=== PATIENT | female | born 1990 | race Caucasian/White ===

== ENCOUNTER 2017-09-21 21:31 | Inpatient (IN) ==
[2017-09-21] MEDS ORDERED: Naloxone 0.4 MG/ML INJ IVP PRN (21:34)
[2017-09-21] MEDS ORDERED: Metoclopramide 10 MG/2 ML VIAL IVP PRN (21:34)
[2017-09-21] MEDS ORDERED: Famotidine 20 MG/2 ML VIAL IVP PRN (21:34)
[2017-09-21] MEDS ORDERED: Ondansetron 4 MG/2 ML VIAL IVP PRN (21:34)
[2017-09-21] MEDS ORDERED: Ringers Solution, Lactated 1,000 ML IVC SCH (21:45)
[2017-09-21] MEDS ORDERED: miSOPROStol 25 MCG TABLET PO ONE (21:50)
--- NOTE | 2017-09-21 22:07 | OB/GYN History & Physical ---
Date of Encounter: 09/21/17 Time of Encounter: 21:58 Assessment and Plan (1) Intrauterine Current visit: Yes Status: Acute Admit to L&D for observation of labor Expectant management Labs-CBC and clot to hold Continuous monitoring Pain management plan is natural childbirth Anticipate Dr. 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 Abraham is a 26 year old female at 38 weeks 4 days gestation with an estimated date of of 10/01/17 dated by early ultrasound. She presents today with complaints of contractions this morning followed by a gush of fluid noted at 1930 this evening. She reports she has not felt contractions since earlier this morning. She endorses good movement and denies vaginal bleeding. Her has been complicated by diet-controlled gestational diabetes. She has been seen by the midwives during this . records are available electronically and have been reviewed. Labs: A+ GBS- Hep B- GC/CL- HIV- T. Palladium- Varicella immune Rubella immune Past Med Surg Social Fam HX - Past Medical History Medical history: no medical history - Past Surgical History Additional surgical history: wisdom teeth - Social History Smoking Status: Never smoker Smokeless Tobacco Status: Yes (chews 1/2 can a day) Alcohol use: none Drug use: none - Family History Mother Living Status: Still Living Obstetrical History - Pregnancies : 1 Para: 0 Term: 0 : 0 Ab's: 0 Livin Medications and Allergies 3 Allergy/AdvReac Type Severity Reaction Status Date / Time No Known Allergies Allergy Verified 09/21/17 21:34 Review of System OB All systems PM: reviewed and no additional remarkable complaints except as stated Exam - Constitutional Constitutional: well developed, well nourished, no acute distress, average body habitus - HEENT HEENT: PERRL, Normocephaly, Mucus Membranes Moist - Neck Neck exam: full ROM, normal inspection, supple, trachea midline - Lungs Respiratory exam: CTAB - Cardiovascular Cardiovascular exam: RRR, +S1, +S2 - Breasts Breast: bilateral: normal - Abdomen Abdomen: Present: bowel sounds normal, gravid, non tender - Extremities Extremities exam: normal capillary refill, normal inspection, pedal edema, radial pulses palpable and symmetrical Deep Tendon Reflex Grade: 2+ Normal - Vulva Vulva: bilateral: normal - Vagina Vagina: Present: normal moisture - Cervix Dilation: 2 Effacement: 50 Station: -3 - Uterus Uterus exam: Present: normal size, normal contour - Adnexa Adnexa: bilateral: normal - Anus/Rectum Anus/Rectum: Present: normal perianal skin Results All other labs normal. - VTE Reasons for not Prescribing Prophylaxis: Treatment not Indicated - Low risk for VTE
[2017-09-21 22:31] LABS: Amphetamine Screen,Urine Negative ng/mL (Cutoff=1000); Barbiturate Screen,Urine Negative ng/mL (Cutoff=200); Benzodiazepines Screen,Urine Negative ng/mL (Cutoff=200); Cannabinoid Screen,Urine Negative ng/mL (Cutoff = 50); Cocaine Screen,Urine Negative ng/mL (Cutoff= 300); Opiate Screen,Urine Negative ng/mL (Cutoff=300); Phencyclidine Screen,Urine Negative ng/mL (Cutoff=25)
[2017-09-21 22:44] LABS: Basophils % 0.2 %; Eosinophils # 0.1 K/mcL (0.0-0.6); Eosinophils % 0.5 %; Hematocrit 37.2 % (35.3-44.9); Hemoglobin 12.4 g/dL (11.5-15.4); Immature Granulocytes % 0.6 % (0-4); Lymphocytes % 21.8 %; Mean Corpuscular HGB Conc 33.3 g/dL (31.6-35.5); Mean Corpuscular Volume 87.1 fL (83.0-100.0); Mean Platelet Volume 12.7 fL (9.4-12.4); Monocytes # 1.1 K/mcL (0.0-1.3); Monocytes % 7.6 %; Neutrophils # 9.7 K/mcL (1.6-8.9); Platelet Count 165 K/mcL (140-400); Red Blood Count 4.27 M/mcL (3.82-4.97); Red Cell Distribution Width 13.6 % (11.5-14.5); Segmented Neutrophils % 69.3 %
[2017-09-22] MEDS ORDERED: Oxytocin 20 units/ LR 1000 mL 20 UNIT/1,000 ML BAG IVC SCH (03:15)
[2017-09-22] MEDS ORDERED: Oxytocin 20 units/ LR 1000 mL 20 UNIT/1,000 ML BAG IVC ONE (03:29)
--- NOTE | 2017-09-22 05:34 | OB Labor Progress Note ---
Date of Encounter: 09/22/17 Time of Encounter: 05:31 Labor Progress Note - Subjective Subjective: Patient reports slightly more discomfort with contractions. Rates them 4 out of 10. - Cervix Cervix: 2/80/-3 - Heart Tones Heart Tones: Baseline 140 Moderate variability Accelerations present 15 x 15 Few late decelerations-resolved with position changes FHR category II - [place]: Contractions every 2-4 minutes and palpate moderate - Plan Plan: Continue expectant management Frequent position changes May have Nubain or epidural upon request Anticipate vaginal delivery
--- NOTE | 2017-09-22 05:51 | OB Labor Progress Note ---
Date of Encounter: 09/22/17 Time of Encounter: 05:49 Labor Progress Note - Subjective Subjective: Comfort level remains the same - Cervix Cervix: 4/80/-2 to -3 - Heart Tones Heart Tones: Baseline 140 Moderate variability Accelerations present 15x15 Variable and early appearing decelerations along with late decelerations FHR Category II - [place]: Contractions every 2-4 minutes and palpate moderate - Interventions Interventions: SVE IUPC placed FSE placed position changes - Plan Plan: Continue expectant management Adjust Pitocin accordingly to adequate labor pattern Frequent position changes May have Nubain or epidural upon request Anticipate
[2017-09-22] MEDS ORDERED: *HR* Oxytocin 10 UNIT/ML VIAL IM ONE (07:18)
[2017-09-22] MEDS: *HR* Nalbuphine 10 MG/ML AMPUL IVP PRN ×2 (09:56→16:17)
[2017-09-22] MEDS ORDERED: Ringers Solution, Lactated 500 ML ONE ×3 (12:22→17:08)
[2017-09-22] MEDS ORDERED: Ringers Solution, Lactated 1,000 ML ONE (17:43)
[2017-09-22] MEDS ORDERED: 0.9 % Sodium Chloride 1,000 ML ONE (18:01)
[2017-09-22] MEDS ORDERED: Epidural Premix (fent/bupiv) 110 ML EP SCH (19:00)
[2017-09-22] MEDS ORDERED: Lidocaine 1% 20 ML MDV ONE (19:00)
[2017-09-22] MEDS ORDERED: Epidural Premix (fent/bupiv) 110 ML EP ONE (19:02)
--- NOTE | 2017-09-22 20:34 | Anesthesia Evaluation PreOp ---
Date of Encounter: 09/22/17 Time of Encounter: 19:00 - Past History Planned Operation: MELLISA Cardiac History: Denies any Significant Hx Pulmonary History: Denies Any Significant HX, Other (SMOKELESS TOBACCO) [employer] History: Denies Any Significant HX Other Medical History: Denies Any Significant HX Anesthesia History: No Prior Anesthetic Complications : Yes Test: Positive Alcohol Use: none Drug use: none Medications and Allergies Gummies 1 PO DAILY 09/21/17 [History] 3 Allergy/AdvReac Type Severity Reaction Status Date / Time No Known Allergies Allergy Verified 09/21/17 21:34 - Meds/Allergy Pre-op Review Medications Reviewed: Yes Allergies Reviewed: Yes Beta Blockers on Current Med List: No Anesthesia Results - Labs 09/21/17 21:42 Anesthesia Exam Height: 68 Weight: 95 NPO (# of Hours): mn Pain Scale: 0 - HEENT Pupil (Motor): Pupils equal Mallampati: II - [employer] Motor: Normal RUE, Normal LUE, Normal RLE, Normal LLE, Normal Face [employer] Sensory: Normal: RUE, LUE, RLE, LLE, Face - Cardiac Rhythm: Regular Murmur: None JVD: No Carotid Bruit: No - Pulmonary Breath Sounds: bilateral Clear Respiratory Effort: Symmetrical Anesthesia Assess/Plan ASA Score: 2 Modified Jose Scale for Level of Consciousness: Cooperative, oriented, and tranquil Anesthetic Plan: Regional Autologous Blood: No Monitoring Plan: Standard Monitors
--- NOTE | 2017-09-22 20:37 | Anesthesia Procedures ---
Date of Encounter: 09/22/17 Time of Encounter: 19:00 Procedures: Anesthesia - Epidural/Spinal Patient ID/Chart reviewed: Yes OB Eval: Gestational age: 38.4 OB Eval: : 1 OB Eval: Hx Para: 0 OB Eval: Contractions: Non-stressed pattern Consent Obtained: Yes Supplemental Oxygen: None/Room Air Site Prep: Aseptic Technique, Sterile prep and drape, Povidone-Iodine 1% Patient position: upright Amount of Local Anesthetic used: 3 Touhy Needle Gauge: 18 Touhy Needle Depth (cm): 9 Catheter Depth at Skin (cm): 12 Test Dose (1.5% Lido + Epi): Volume given (mls): 3 Test Dose Result: Negative Loading Dose Administered: Thru Catheter Infusion Rate (mls/hr): [address]: Tegaderm, Tape Interspace Used: L4-L5 Loss of Resistance (DERIAN): Yes Blood: No CSF: No Paresthesia: No
--- NOTE | 2017-09-22 21:34 | OB Labor Progress Note ---
Date of Encounter: 09/22/17 Time of Encounter: 21:32 Labor Progress Note - Subjective Subjective: Feeling some pressure - Vital Signs Vital Signs: VSS - Cervix Cervix: 7-8/100/0 - Heart Tones Heart Tones: FHR 145 Category 2 Moderate variability Variable decelerations Accelerations - [place]: IUPC - Plan Plan: Continue routine labor management Consider restarting IV Pitocin Encourage frequent position changes Anticipate vaginal delivery POC per consult with Dr Amador
--- NOTE | 2017-09-23 01:32 | OB/GYN Procedure Note ---
Delivery - Delivery Date: 09/23/17 Provider: Hazel Romero Intrapartum events: none Delivery induction: none Delivery augmentation: pitocin Delivery monitor: external FHT, external uterine, internal FHT, internal uterine Anesthesia: epidural Quantitated Blood Loss: 350 - (s) A Delivery Date: 09/23/17 Delivery Time: 00:58 Presentation: vertex Position: THAO Route of delivery: Gender: Male Viability: Viable Pounds: 7 Ounces: 10 Weight Gram: 3460 kg at 1 minute: 8 at 5 mins: 9 Shoulder Dystocia: not encountered Specimens collected: cord blood Placenta: spontaneous Cord: nuchal cord, 3 umbilical vessels, delivered through nuchal - Repair Episiotomy: none Laceration Description: Perineal - 1st Degree - Complications Delivery complications: none Delivery comments: Progressed to complete and pushing to delivery of viable male infant in the THAO position. scores 8 at one minute and 9 at five minutes respectively. Nuchal cord x 2, delivered through. No shoulder encountered, no meconium encountered. Infant placed on maternal abdomen, warmed, dried and stimulated. Cord double clamped and cut with assistance from father of baby after delayed cord clamping greater than 2 minutes. 3 vessel cord. Placenta delivered intact with trailing membranes; membranes removed with gentle pressure and twisting motion.Upon perineal inspection, a first degree perineal laceration was found and repaired with 3-0 Monocryl. EBL 350 ml. Fundus firm and 1 below the umbilicus with minimal bleeding. Mother and stable in recovery for two hours. LORENE Garner and Hazel Romero CNM attended . Dr Amador notified of . - Disposition Mom disposition: stable in LDR Branch disposition: stable in LDR
[2017-09-23] MEDS ORDERED: Benzocaine/Menthol 56 GM AEROSOL SPRAY TP PRN (03:50)
[2017-09-23] MEDS ORDERED: Oxytocin 20 units/ LR 1000 mL 20 UNIT/1,000 ML BAG IVC ONE (03:50)
[2017-09-23] MEDS ORDERED: Measles/Mumps/Rubella Vacc 0.5 ML VIAL SQ PRN (03:50)
[2017-09-23] MEDS ORDERED: Acetaminophen 325 MG TABLET PO PRN (03:50)
[2017-09-23] MEDS ORDERED: Oxytocin 20 units/ LR 1000 mL 20 UNIT/1,000 ML BAG IVC SCH (03:50)
[2017-09-23] MEDS ORDERED: Sennosides 8.6 MG TABLET PO PRN (03:50)
[2017-09-23] MEDS: Prenatal Vit/FA 1 EACH TABLET PO SCH (10:27)
[2017-09-23] MEDS: Ibuprofen 600 MG TABLET PO PRN ×2 (10:28→21:46)
[2017-09-24 08:07] VITALS: BP 114/76
[2017-09-24] MEDS: Prenatal Vit/FA 1 EACH TABLET PO SCH (08:19)
--- NOTE | 2017-09-24 10:19 | Discharge Summary ---
Date of Encounter: 09/24/17 Time of Encounter: 10:16 - Discharge Diagnosis (1) Vaginal delivery Priority: Primary Status: Acute Comments: Meeting all PP milestone, bleeding minimal, , tolerates regular diet, desires discharge. - Discharge Medications Prescriptions: Ibuprofen [Motrin] 600 mg PO Q6HR PRN #60 tablet PRN Reason: Cramping Dibucaine [Nupercainal] 1 appl TP BID PRN #1 tube PRN Reason: Hemorrhoids Docusate [Colace] 100 mg PO BID #60 capsule Home Medications: Gummies 1 PO DAILY 09/21/17 [History] Acetaminophen [Tylenol] 650 mg PO Q6HR PRN tablet 09/24/17 [Rx] Benzocaine/Menthol [place] [Dermoplast [place]] 1 appl TP QID PRN aerosol 09/24/17 [Rx] Dibucaine [Nupercainal] 1 appl TP BID PRN #1 tube 09/24/17 [Rx] Docusate [Colace] 100 mg PO BID #60 capsule 09/24/17 [Rx] Ibuprofen [Motrin] 600 mg PO Q6HR PRN #60 tablet 09/24/17 [Rx] Vit/FA 1 each PO DAILY tablet 09/24/17 [Rx] Allergies/Adverse Reactions: 3 Allergy/AdvReac Type Severity Reaction Status Date / Time No Known Allergies Allergy Verified 09/21/17 21:34 Data Procedures and tests throughout hospitalization: Laboratory Tests 09/21/17 09/21/17 09/22/17 21:42 22:00 10:27 WBC 13.9 H RBC 4.27 Hgb 12.4 Hct 37.2 MCV 87.1 MCH 29.0 MCHC 33.3 RDW 13.6 Plt Count 165 MPV 12.7 H Immature Gran % 0.6 Seg Neutrophils % 69.3 Lymphocytes % 21.8 Monocytes % 7.6 Eosinophils % 0.5 Basophils % 0.2 Neutrophils # 9.7 H Lymphocytes # 3.0 Monocytes # 1.1 Eosinophils # 0.1 Basophils # 0.0 POC Glucose 79 Urine Opiates Screen Negative Ur Barbiturates Screen Negative Ur Phencyclidine Scrn Negative Ur Amphetamines Screen Negative U Benzodiazepines Scrn Negative Urine Cocaine Screen Negative U Marijuana (THC) Screen Negative 09/22/17 09/22/17 09/23/17 15:10 18:48 00:00 WBC RBC Hgb Hct MCV MCH MCHC RDW Plt Count MPV Immature Gran % Seg Neutrophils % Lymphocytes % Monocytes % Eosinophils % Basophils % Neutrophils # Lymphocytes # Monocytes # Eosinophils # Basophils # POC Glucose 77 80 86 Urine Opiates Screen Ur Barbiturates Screen Ur Phencyclidine Scrn Ur Amphetamines Screen U Benzodiazepines Scrn Urine Cocaine Screen U Marijuana (THC) Screen Date of admission: 09/21/17 22:38 Primary care physician: PCP NONE Consults: 09/23/17 03:50 Consult to Route Rider [CONS] Routine Comment: Vaginal delivery, consult needed Discharging clinician: Angela Whittaker Anticipated date of discharge: 09/24/17 - Patient Status Disposition: Home, Self-Care Condition: Good Functional capacity at discharge: independent ambulation Overall status at discharge: patient is back to baseline - Discharge Instructions Follow Up With: NONE,PCP [Primary Care Provider] - - Diet and Activity Activity: resume usual activities as tolerated Diet: regular diet Hospital Course Reason for admission: active labor, IUP at term Delivery: Episiotomy: none Laceration: 1st degree Other procedures: none complications: none Discharge diagnosis: IUP at term delivered [place] baby: male Hospital course: Delivery - Delivery Date: 09/23/17 Provider: Hazel Romero Intrapartum events: none Delivery induction: none Delivery augmentation: pitocin Delivery monitor: external FHT, external uterine, internal FHT, internal uterine Anesthesia: epidural Quantitated Blood Loss: 350 - (s) Infant A Delivery Date: 09/23/17 Delivery Time: 00:58 Presentation: vertex Position: THAO Route of delivery: Gender: Male Viability: Viable Pounds: 7 Ounces: 10 Weight Gram: 3460 kg at 1 minute: 8 at 5 mins: 9 Shoulder Dystocia: not encountered Specimens collected: cord blood Placenta: spontaneous Cord: nuchal cord, 3 umbilical vessels, delivered through nuchal - Repair Episiotomy: none Laceration Description: Perineal - 1st Degree - Complications Delivery complications: none Delivery comments: Progressed to complete and pushing to delivery of viable male in the THAO position. scores 8 at one minute and 9 at five minutes respectively. Nuchal cord x 2, delivered through. No shoulder encountered, no meconium encountered. Infant placed on maternal abdomen, warmed, dried and stimulated. Cord double clamped and cut with assistance from father of baby after delayed cord clamping greater than 2 minutes. 3 vessel cord. Placenta delivered intact with trailing membranes; membranes removed with gentle pressure and twisting motion.Upon perineal inspection, a first degree perineal laceration was found and repaired with 3-0 Monocryl. EBL 350 ml. Fundus firm and 1 below the umbilicus with minimal bleeding. Mother and stable in recovery for two hours. LORENE Garner and Hazel Romero CNM attended . Dr Amador notified of . - Disposition Mom disposition: stable in PP and appropriate for discharge. Time Attestation: Total time spent providing and/or coordinating discharge services: Time Spent: Less than 30 minutes Exam - Constitutional Vitals: Temp Pulse Resp BP Pulse Ox 97.9 F 84 16 114/76 98 09/24/17 07:37 09/24/17 07:37 09/24/17 07:37 09/24/17 07:37 09/24/17 07:37 General appearance IM: A&O X 3 - Respiratory Respiratory exam: Present: CTAB - Cardiovascular Cardiovascular exam IM: Present: RRR - GI/Abdominal GI/Abdominal exam IM: normal bowel sounds - Uterine Tone: Firm Uterus Position: At Umbilicus - Extremities Exam Extremities exam IM: Present: normal capillary refill, normal inspection - Neurological Exam Neurological exam: normal gait, oriented X3 - Psychiatric Additional comments: reports good mood
== END 2017-09-24 18:08 | disposition home or self-care (01) | DRG 775 ==
LOC: 1NENULAB → 1NENUOBS 09-23 03:52
PROVIDERS: ADMIT Advanced Practice Midwife; ATTEND Advanced Practice Midwife